=== PATIENT | female | born 1940 | race Caucasian/White ===

== ENCOUNTER → 2019-05-18 | Outpatient (CLI) | payer OTHER ==
[~2019-05-18] VITALS: Ht 154.9 cm; Wt 67.1 kg
[~2019-05-18] MED LIST: ATIVAN1 MG PO; AVAPRO 150 MG150 MG PO; CALCIUM CARBON500 M3 PO; DIOVAN40 MG PO; ECOTRIN PO; HYDROCODON-ACE1 EAC1 PO; MILLTRIUM SENI1 EACH PO; OMEGA-3100 MG PO; OMEPRAZOLE20 M2 PO; PROTONIX40 M2 PO; VITAMIN D-32000 UNIT PO; ZETIA10 MG PO; ZOLOFT100 MG PO
--- NOTE | 2019-05-21 11:53 | P ---
[facility] [place] [address] PROCEDURE REPORT Name: VERONICA DAVEY Room #: REG [facility]#: [id number] Admission: 05/18/19 Attend Phys: Dick Ryan MD Discharge: Date of : 44 Report #: [id number] THIS REPORT FOR: //name// CC: Dick Acosta MD UPPER ENDOSCOPY REPORT BRIEF HISTORY: The patient is a 79-year-old woman with history of reflux disease. She was noted increasing symptoms in spite of PPI therapy. She is also having intermittent episodes of solid food dysphagia particular for bread at the level of the distal esophagus. She has been dilated in the past. PREOPERATIVE DIAGNOSIS: Increasing reflux symptoms on therapy and solid food dysphagia. POSTOPERATIVE DIAGNOSES: 1. Small hiatus hernia. 2. Dysphagia. MEDICATIONS: Initially deep sedation with propofol per anesthesia, but converted to general anesthesia and intubation with laryngeal spasm. SPECIMEN: None. ESTIMATED BLOOD LOSS: None. PROCEDURE: EGD and Savary dilation of esophagus over guidewire. DESCRIPTION OF PROCEDURE: With the patient in left lateral decubitus position, the Olympus video endoscope was inserted in the cervical esophagus under direct vision without difficulty. As we advanced the scope into the duodenum, the patient developed laryngeal spasm. The scope was withdrawn and the Anesthesia Services attended the patient. The spasm would not break and ultimately she was paralyzed and intubated. We then proceeded with the procedure and the Olympus video endoscope was again inserted in cervical esophagus without difficulty. It was advanced into the duodenum. The scope was advanced to the third portion of duodenum. Upon withdrawal of the scope, the mucosa was inspected. It is noted there is a possible family history of Chaudhry syndrome. As we withdrew the scope, no polyps were seen in the duodenum. The papilla was identified and noted to be unremarkable. The duodenal bulb was unremarkable. Examination of the stomach revealed normal mucosa. No ulcers or erosions were seen. Upon retroflexion, no mass lesions were seen. Intermittently, a small hiatus hernia was noted in the distal esophagus. Examination of esophagus revealed normal mucosa. There was [facility] [address] [place] [address] PROCEDURE REPORT Name: TAMICAVERONICA Room #: REG [facility].#: [id number] Admission: 05/18/19 Attend Phys: Dick Ryan MD Discharge: Date of : 44 Report #: [id number] no evidence of esophagitis or Garcia's mucosa. No strictures or masses were seen. The mucosa in the esophagus was normal. The scope was then advanced to the level of pylorus. A guidewire was inserted through the biopsy channel and the scope was withdrawn over the wire. She was then dilated with passage of a 51-[place]arian Savary dilator over the wire. CONDITION OF THE PATIENT UPON DISCHARGE: Following the procedure, the patient was taken to recovery room in good condition. INSTRUCTIONS TO THE PATIENT AND FAMILY AT THE TIME OF DISCHARGE: She has had increasing symptoms of reflux on PPI therapy. We will have her increase her PPI to twice daily for potentially consider switching to another such as Dexilant. If she continues to have symptoms, she is to return to see me in followup in the office. <ELECTRONICALLY SIGNED> By: Dick Ryan MD 05/21/19 [id number] Dick Ryan MD /nt
== END | disposition home or self-care (01) ==
LOC: GI 08:26
DX: K21.9 Gastro-esophageal reflux disease without esophagitis (principal); R13.12 Dysphagia, oropharyngeal phase; K44.9 Diaphragmatic hernia without obstruction or gangrene; I10 Essential (primary) hypertension; M06.9 Rheumatoid arthritis, unspecified; Z90.49 Acquired absence of other specified parts of digestive tract; Z98.890 Other specified postprocedural states; Z79.899 Other long term (current) drug therapy; Z91.041 Radiographic dye allergy status; Z88.2 Allergy status to sulfonamides; Z88.8 Allergy status to other drugs, medicaments and biological substances
CPT/HCPCS: 62110; 62900; 70005